=== PATIENT | female | born 1985 | race Two or more races ===

== ENCOUNTER 2024-02-20 17:08 | Inpatient (IN) | payer BC, SELFPAY ==
[2024-02-20] VITALS (32 sets, daily range): BP systolic 87–116; BP diastolic 52–79; PULSE 64–116; RESP 13–24; TEMP 36.5–36.7; O2SAT 92–100; BMI 41.9
--- NOTE | 2024-02-20 17:35 | PD.LDHP ---
Documentation for date of: 02/20/24 OB Labor/Induct. HPI History of Present Illness : 3 Para: 2 Term pregnancies: 2 History of present illness: 38-year-old G3, P2 who comes at 33 weeks and 1 day due to vaginal bleeding and contractions for an hour. Patient has history of 2 vaginal deliveries and placenta previa. Patient received steroids 1 month ago after being admitted in [place] for the same reason. Per patient, she has suspected placenta accreta. Reports not available, patient sees another provider in [place] Review of Systems Allergic/Immunologic Comments: Denies Past Medical History Surgical History OTHER SURGICAL HX: Gastric sleeve Past Medical History Comments PMH COMMENT: Denies Meds Home Medications and Allergies Home Medications ?Medication ?Instructions ?Recorded ?Confirmed ?Type vit no.95-ferrous 1 tab PO QDAY 09/07/22 12/16/23 History fumarate 28 mg-folic acid 800 mcg tablet () levothyroxine 50 mcg tablet 50 mcg PO QDAY 12/16/23 12/16/23 History ondansetron HCl 8 mg tablet 8 mg PO Q8HR PRN Nausea 12/16/23 12/16/23 History Allergies Allergy/AdvReac Type Severity Reaction Status Date / Time No Known Allergies Allergy Verified 12/16/23 19:40 OB Exam Physical Exam Vital signs: Pulse Ox 100 02/20/24 17:32 Routine Abdominal Exam Comments: Soft, nontender Detailed Labor and Delivery Exam Dilation (cm): 0 Presentation: Vertex Baseline heart rate: 150 monitor accelerations: 15x15 monitor decelerations: None terminal worker variability: Moderate (11-25) Contraction duration (sec): irreg OB Results Labs 02/20/24 17:45 02/20/24 17:45 Impressions Impression: 38-year-old G3, P2 at 33 weeks and 1 day with active bleeding Complete placenta previa, possible accreta OB Assessment & Plan Additional Plan Additional Plan Comment: Admit to labor and delivery. Routine admission labs. 3 units PRBC on hold. Patient consented for primary and possible hysterectomy
[2024-02-20 18:02] LABS: Basophils % (Auto) 0 % (0-2.5); Eosinophils % (Auto) 0 % (0-10); Hemoglobin 9.9 g/dL (12.0-16.0); Immature Granulocytes % (Auto) 1 % (0-0); Immature Granulocytes Auto 0.05 Thou/mm3 (0.00-0.00); Lymphocytes # (Auto) 1.6 Thou/mm3 (1.0-4.8); Lymphocytes % (Auto) 20 % (10-50); Mean Corpuscular Hemoglobin 26.4 pg (25.0-35.0); Mean Corpuscular Volume 80 fL (80-100); Monocytes # (Auto) 0.6 Thou/mm3 (0.0-0.8); Monocytes % (Auto) 7 % (0-12); Neutrophils # (Auto) 5.7 Thou/mm3 (1.8-7.7); Neutrophils % (Auto) 72 % (37-80); Nucleated Red Blood Cell % 0 /100 WBC (0); Platelet Count 151 Thou/mm3 (140-440); RDW Standard Deviation 40.7 fL (36.4-46.3); Red Blood Count 3.75 Miln/mm3 (4.00-5.20)
[2024-02-20 18:16] LABS: HIV (1&2) Antibody Rapid Non-Reactive
[2024-02-20] MEDS: ceFAZolin/D5W 2 GM IV 2 GM/100 ML BAG IV (18:21)
[2024-02-20] MEDS: CITRIC ACID/SODIUM CITR 15 ML UDC (BICITRA) 30 ML PO (18:21)
[2024-02-20] MEDS: FAMOTIDINE INJ 10 MG/ML VIAL 2 ML 20 MG IV (18:21)
[2024-02-20 18:28] LABS: Albumin/Globulin Ratio 1.4 (1.2-2.2); Alkaline Phosphatase 94 U/L (46-116); Anion Gap 11 (7-16); Aspartate Amino Transferase 11 U/L (0-34); BUN/Creatinine Ratio 13 Ratio (12-20); Bilirubin,Total 0.6 mg/dL (0.3-1.2); Blood Urea Nitrogen 8 mg/dL (9-23); Calcium 8.8 mg/dL (8.3-10.6); Calcium (Corrected) 8.8 mg/dL (8.5-10.1); Carbon Dioxide 20.5 mMol/L (20.0-31.0); Chloride 107 mMol/L (98-107); Creatinine (Component) 0.6 mg/dL (0.6-1.3); Estimated Creatinine Clearance 146.6 mL/min (>60); Globulin 2.9 gm/dL (2.3-3.5); Glucose 89 mg/dL (74-106); Osmolality,Calculated 272 (275-295); Potassium 3.6 mMol/L (3.4-5.1); Rubella, IgG Antibody Reactive (Immune); Sodium 138 mMol/L (136-145); Total Protein 6.9 gm/dL (5.7-8.2); eGFR > 60 See Note
[2024-02-20 18:31] LABS: Alanine Aminotransferase 8 U/L (10-49)
[2024-02-20 18:35] LABS: Hepatitis B Surface Antigen Non Reactive (Non React)
[2024-02-20 18:38] LABS: Syphilis Nonreactive (Nonreactive)
[2024-02-20 18:44] LABS: Fibrinogen 596 mg/dL (175-375); INR 0.9 (0.9-1.3); Partial Thromboplastin Time 25.6 Seconds (22.0-36.0)
--- NOTE | 2024-02-20 19:16 | ESOP_ITS ---
Operative Note - FENDER MECHANIC Procedure Date of procedure: 02/20/24 Procedure Performed: Primary low-transverse . Bilateral salpingectomy Indication: Placenta previa with active bleeding Desires permanent sterilization Pre-Op diagnosis: IUP at 33 weeks. Placenta. Active bleeding. Desires permanent sterilization Post-Op diagnosis: IUP at 33 weeks. Placenta. Active bleeding. Desires permanent sterilization Viable female Anesthesia type: Spinal Procedure description: The patient was taken to the OR, spinal anesthesia was used and was adequate.? 2 g of Ancef were given for infection prophylaxis.? She was prepped and draped in dorsal supine position.? ?A Pfannenstiel skin incision was made with a scalpel Incision was carried down through the fascia with the Bovie Fascia was grasped with Joaquim clamps superiorly and inferiorly and dissected with the Bovie. The rectus muscles were then dissected with the Bovie as well. Peritoneum was? entered bluntly. The uterine incision was performed and extended bluntly.? Baby was delivered from vertex presentation without any complications. ?Nose and mouth were suctioned on the operative field, cord was then clamped and cut.? The infant was handed off to the nurse.? Cord blood was obtained. IV oxytocin? was initiated to facilitate uterine contractions. The uterus was not exteriorized.? The inside of the uterus was then cleaned with a lap sponge to ensure complete removal of the placental membranes without complications. Then the hysterotomy was repaired along the uterine incision with 0 Vicryl in a locked fashion and? then in a running fashion with the same suture. 1g of TXA IV was given. Attention was then turned to the fallopian tubes which were grasped with Danny clamps bilaterally dissected and cut with excellent hemostasis with an Enseal device The uterus was inspected in the abdomen and noted to be firm,? the uterine incision was reinspected with excellent hemostasis noted after 0.2mg of methergine IM. Fascia layer was closed with an 0 Vicryl in a running fashion Subcutaneous layer was closed with plain gut Skin was close with 4-0 Monocryl Specimen: left tube and right tube Estimated blood loss (ml): 800 Findings: Normal uterus, tubes, ovaries, no accreta Complications: none Surgical staff Operation Date: 02/20/24 19:00 <No data on this case meets the specified criteria> Diagnosis Problem List Completed Was Problem List Reviewed/Reconciled?: Yes
--- NOTE | 2024-02-20 19:37 | PD.LDDELS ---
Data ([facility]) Data Para: 2 Delivery Data ([facility]) Labor Data ROM Date: 02/20/24 ROM Time: 18:51 Rupture Type: AROM Delivery Data Labor Onset Stage 1 Date: 02/20/24 Labor Onset Stage 1 Time: 18:51 Labor Onset Stage 2 Date: 02/20/24 Labor Onset Stage 2 Time: 18:51 Delivery Date: 02/20/24 Delivery Time: 18:51 Placenta Delivery Date: 02/20/24 Placenta Delivery Time: 18:52 Delivered by: Luis Alberto Marin Delivery nurse: Stephy Valdez Other staff at delivery: 2nd Nurse Other staff at delivery: 2nd Nurse Other staff at delivery: 2nd Nurse Other staff at delivery: Nursery Nurse Other staff at delivery: Dorothea Roberts Other staff at delivery: Evelin Trejo Other staff at delivery: Lovely Jasmine Other staff at delivery: LUCIANA Sinclairbusiness department chair Method Delivery: Delivery Type: Primary Presentation: Vertex Anesthesia Type Primary Anesthesia: Spinal Delivery Room Medications Other Intrapartum Medications: Yes Placenta Placenta Delivery: Manual Placenta Sent for Examination: Yes Cord Sample: Cord Blood Obtained, Cord Gases Arterial and Cord Gases Venous EBL Estimated blood loss (ml): 800 Umbilical Cord Placenta/Cord Complication: Placenta Previa Umbilical Vessels: 3 Nuchal Cord: None Body Cord: None [place] Data ([facility]) Data Infant Gender: Male Infant Weight Grams: 2480 1 Minute Total: 7 5 Minute Total: 9
[2024-02-20] MEDS: DIPHENOXYLATE/ATROP SULF 1 TAB PO (20:05)
[2024-02-20] MEDS: TRANEXAMIC ACID 1,000 MG IVPB 1,000 MG/100 ML BAG 200 MG IV (20:07)
[2024-02-20] MEDS: METHYLERGONOVINE 0.2 MG TABLET PO (21:11)
[2024-02-20] MEDS: OXYTOCIN in NS 20 units 20 UNIT/1,000 ML BAG 125 UNIT IV (22:34)
[2024-02-20] MEDS: ONDANSETRON INJ 2 MG/ML INJ 2 ML 4 MG IV (23:27)
[2024-02-21] VITALS: BP 98/64; PULSE 63; RESP 18; TEMP 36.8; O2SAT 98
[2024-02-21 02:27] LABS: Amphetamine/Metham Scrn,Ur OB Negative (Negative); Benzoylecgonine Screen, Ur OB Negative (Negative); Opiate Screen,Urine OB Negative (Negative); THC Screen,Urine OB Negative (Negative)
[2024-02-21 04:00] VITALS: BP 93/59; PULSE 54; RESP 18; TEMP 36.4; O2SAT 100
[2024-02-21 05:48] LABS: Basophils % (Auto) 0 % (0-2.5); Eosinophils % (Auto) 0 % (0-10); Hematocrit 25.3 % (36.0-46.0); Immature Granulocytes % (Auto) 1 % (0-0); Immature Granulocytes Auto 0.09 Thou/mm3 (0.00-0.00); Lymphocytes # (Auto) 0.8 Thou/mm3 (1.0-4.8); Lymphocytes % (Auto) 6 % (10-50); Mean Corpuscular HGB Conc 33.6 g/dl (31.0-37.0); Mean Corpuscular Hemoglobin 26.8 pg (25.0-35.0); Mean Corpuscular Volume 80 fL (80-100); Monocytes # (Auto) 0.6 Thou/mm3 (0.0-0.8); Monocytes % (Auto) 5 % (0-12); Neutrophils # (Auto) 11.3 Thou/mm3 (1.8-7.7); Neutrophils % (Auto) 89 % (37-80); Nucleated Red Blood Cell % 0 /100 WBC (0); Platelet Count 127 Thou/mm3 (140-440); RDW Standard Deviation 40.3 fL (36.4-46.3); Red Blood Count 3.17 Miln/mm3 (4.00-5.20); White Blood Count 12.8 Thou/mm3 (3.6-11.0)
[2024-02-21 05:52] LABS: Hemoglobin 8.5 g/dL (12.0-16.0)
[2024-02-21] MEDS: OXYTOCIN in NS 20 units 20 UNIT/1,000 ML BAG 125 UNIT IV (06:36)
--- NOTE | 2024-02-21 07:10 | PC.NURSE ---
Dr. Marin made aware of h/h no new orders
[2024-02-21 07:27] VITALS: BP 93/57; PULSE 63; RESP 18; TEMP 36.8; O2SAT 100
[2024-02-21] MEDS: KETOROLAC INJ 30 MG/ML VIAL IVP ×2 (07:30→21:10)
--- NOTE | 2024-02-21 08:38 | ESPR_ITS ---
Subjective Subjective Interval history: Bedside. Afebrile, tolerating p.o., ambulating, voiding, positive flatus Exam Vital Signs Temp Pulse Resp BP Pulse Ox O2 Del Method 97.5 F 54 L 18 93/59 L 100 Room Air 02/21/24 04:00 02/21/24 04:00 02/21/24 04:00 02/21/24 04:00 02/21/24 04:00 02/21/24 04:00 Routine Abdominal Exam Comments: Soft, appropriate tender. Incision clean, dry, intact. Uterus firm, below the umbilicus Routine Exam Comments: Lochia similar to menses Routine Extremities Exam Comments: Homans' sign negative Objective Labs 02/21/24 04:47 02/20/24 17:45 Labs: Laboratory Results - last 24 hr 02/20/24 02/21/24 02/21/24 17:45 02:00 04:47 WBC 8.0 12.8 H D RBC 3.75 L 3.17 L Hgb 9.9 L 8.5 L Hct 30.0 L 25.3 L MCV 80 80 MCH 26.4 26.8 MCHC 33.0 33.6 RDW Std Deviation 40.7 40.3 Plt Count 151 127 L Neut % (Auto) 72 89 H Lymph % (Auto) 20 6 L [place] % (Auto) 7 5 Eos % (Auto) 0 0 Baso % (Auto) 0 0 Neut # (Auto) 5.7 11.3 H Lymph # (Auto) 1.6 0.8 L [place] # (Auto) 0.6 0.6 Eos # (Auto) 0.0 0.0 Baso # (Auto) 0.0 0.0 Immature Gran # (Auto) 0.05 H 0.09 H Absolute Nucleated RBC 0.00 0.00 Immature Gran % 1 H 1 H Nucleated RBC % 0 0 PT 10.0 INR 0.9 APTT 25.6 Fibrinogen 596 H Sodium 138 Potassium 3.6 Chloride 107 Carbon Dioxide 20.5 Anion Gap 11 BUN 8 L Creatinine 0.6 Estim Creat Clear Calc 146.6 eGFR > 60 BUN/Creatinine Ratio 13 Glucose 89 Calculated Osmolality 272 L Uric Acid 5.0 Calcium 8.8 Corrected Calcium 8.8 Total Bilirubin 0.6 AST 11 ALT 8 L Alkaline Phosphatase 94 Total Protein 6.9 Albumin 4.0 Globulin 2.9 Albumin/Globulin Ratio 1.4 Urine Opiates Screen Negative U Amphetamin/Meth Scrn Negative U Cocaine Metab Screen Negative U Marijuana (THC) Screen Negative Syphilis Serology Nonreactive Hep Bs Antigen Non Reactive HIV 1&2 Antibody Rapid Non-Reactive Rubella IgG Antibody Reactive (Immune) Blood Type B Negative Antibody Screen NEGATIVE Crossmatch See Detail Blood Bank Wristband ID Yes Assessment & Plan Assessment Comment Assessment comment: 38-year-old status post primary due to placenta previa with bleeding Post op day 1 Status post 1 unit PRBC Plan Comment Plan Comment: Routine care. Encourage ambulation. IV iron infusions. Lovenox for DVT prophylaxis Time Spent With Patient Time: Total time spent is greater than 50% in coordination of care (as documented) at patient's floor/unit and/or counseling patient:
[2024-02-21 09:26] LABS: Chlamydia trachomatis PCR Negative (Not Detect); Neisseria Gonorrhoeae DNA PCR Negative (Not Detect); Trichomonas Negative (Negative)
[2024-02-21] MEDS: ENOXAPARIN SOD INJ 40 MG/0.4 ML SYRINGE SC (09:43)
[2024-02-21] MEDS: IRON SUCROSE CPLX INJ 20 MG/ML VIAL 5 ML 200 MG IVP (09:45)
--- NOTE | 2024-02-21 09:47 | PC.NURSE ---
Ok to give Lovenox with a platelet count of [address] Marin
[2024-02-21] MEDS: SIMETHICONE 80 MG CHEW PO (11:57)
[2024-02-21 12:00] VITALS: BP 92/53; PULSE 62; RESP 17; TEMP 36.8; O2SAT 100
--- NOTE | 2024-02-21 13:07 | PC.SS ---
PRODUCTION OFFICER conducted bedside contact with the patient to address nursing referral indicating patient possessed history of anxiety. PRODUCTION OFFICER conducted bedside contact with the patient. PRODUCTION OFFICER introduced self, role and basis of discussion. Patient confirmed past possession of anxiety due to passing of family member. Patient reports event occurred approximately 3 years ago. Patient denies current possession of anxiety. Patient reports no possession of mental health services. Patient confirmed that is admitted to NICU, due denies possession of elevated anxiety at current time. Carolina delivered by . is the patient?s 3rd child. Other children are ages 7 and 1 years old. Patient resides with children and FONed Zamora. 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 Patient is not aligned with WIC, [employer] or TANF. Patient denies history of alcohol/drug abuse. Patient denies CWS intervention. Patient denies episodes of domestic violence. Patient plans on combo feeding the . OB services provided by [facility]. Patient reports consistency with OB appointments. Patient has access to appropriate supplies and equipment; to include a car seat. FOB will provide transportation upon discharge. Patient describes possessing support system consisting of FOB and extended family. PRODUCTION OFFICER provided the patient with community resources. No further intervention required at this time, case management social worker will be available to address any further concerns. PRODUCTION OFFICER updated bedside nurse.
[2024-02-21 15:20] VITALS: BP 93/55; PULSE 72; RESP 18; TEMP 36.7; O2SAT 100
[2024-02-21 21:00] VITALS: BP 90/57; PULSE 80; RESP 16; TEMP 36.7; O2SAT 100
[2024-02-22 05:29] VITALS: BP 84/50; PULSE 86; RESP 16; TEMP 36.9; O2SAT 98
[2024-02-22 08:50] VITALS: BP 100/63; PULSE 93; RESP 18; TEMP 37; O2SAT 99
[2024-02-22] MEDS: Milk Of Magnesia Susp 30 ML UDC PO ×2 (09:14→19:33)
[2024-02-22 09:15] VITALS: TEMP 37
[2024-02-22] MEDS: ENOXAPARIN SOD INJ 40 MG/0.4 ML SYRINGE SC (09:15)
[2024-02-22] MEDS: HYDROcodone/APAP 5/325 TABLET 1 TAB PO ×2 (09:15→19:25)
[2024-02-22] MEDS: SIMETHICONE 80 MG CHEW PO ×2 (09:15→19:33)
[2024-02-22] MEDS: IBUPROFEN TAB 400 MG TABLET 800 MG PO (09:15)
[2024-02-22] MEDS: IRON SUCROSE CPLX INJ 20 MG/ML VIAL 5 ML 200 MG IVP (11:00)
--- NOTE | 2024-02-22 12:41 | PD.LDPPPRG ---
Subjective Subjective Interval history: Delivery type: Patient doing well this morning. No acute complaints. Ambulating, tolerating p.o. and voiding without difficulty. HTN/Pre-Eclampsia screen: No chest pain, shortness of breath, headache, visual changes, epigastric or right upper quadrant pain. Breast-feeding, lochia diminishing. Bowel: Flatus+/ BM+ Exam Vital Signs Temp Pulse Resp BP Pulse Ox O2 Del Method 98.6 F 93 18 100/63 99 Room Air 02/22/24 09:15 02/22/24 08:50 02/22/24 08:50 02/22/24 08:50 02/22/24 08:50 02/22/24 08:50 Constitutional Constitutional: no acute distress Routine HEENT Exam Head: Present normocephalic and atraumatic Eye: Present EOMI and PERRL ENT: Present mucous membranes moist Routine Neck Exam Neck: Present supple and trachea midline Routine Respiratory Exam Respiratory: Present chest non-tender, lungs clear, normal breath sounds and no resp distress Routine Cardiovascular Exam Cardiovascular: Present RRR Routine Abdominal Exam Abdominal: Present soft and normoactive bowel sounds Routine Extremities Exam Extremities: Present full ROM Routine Skin Exam Skin: Present intact, dry and warm Routine Neurological Exam Neurological: Present alert, oriented X3 and CN II-XII intact Routine Psychiatric Exam Psychiatric: Present normal affect and normal thought process Objective Labs 02/21/24 04:47 02/20/24 17:45 Assessment & Plan Problem List (1) delivery delivered: Status: Acute Assessment and plan: PPD/POD#2 1. Continue routine care 2. Transition to PO meds. 3. Encourage to ambulate/ breast-feed 4. Anticipate discharge home tomorrow. Time Spent With Patient Time: Total time spent is greater than 50% in coordination of care (as documented) at patient's floor/unit and/or counseling patient:
[2024-02-22 14:20] VITALS: BP 90/60; PULSE 77; RESP 20; TEMP 36.8; O2SAT 99
[2024-02-22 16:30] VITALS: BP 101/64; PULSE 80; RESP 20; TEMP 36.8; O2SAT 99
[2024-02-22 19:28] VITALS: BP 103/65; PULSE 64; PULSE 87; RESP 18; TEMP 36.8; O2SAT 99
[2024-02-23 04:00] VITALS: BP 93/62; PULSE 85; RESP 16; TEMP 36.7; O2SAT 100
[2024-02-23] MEDS: HYDROcodone/APAP 5/325 TABLET 1 TAB PO (04:39)
[2024-02-23 07:36] VITALS: BP 94/59; PULSE 88; RESP 16; TEMP 36.4; O2SAT 98
--- NOTE | 2024-02-23 08:31 | PD.LDPPPRG ---
Subjective Subjective Interval history: Delivery type: Patient doing well this morning. No acute complaints. Ambulating, tolerating p.o. and voiding without difficulty. HTN/Pre-Eclampsia screen: No chest pain, shortness of breath, headache, visual changes, epigastric or right upper quadrant pain. Breast-feeding, lochia diminishing. Bowel: Flatus+/ BM+ Exam Vital Signs Temp Pulse Resp BP Pulse Ox O2 Del Method 97.6 F 88 16 94/59 L 98 Room Air 02/23/24 07:36 02/23/24 07:36 02/23/24 07:36 02/23/24 07:36 02/23/24 07:36 02/23/24 07:36 Constitutional Constitutional: no acute distress Routine HEENT Exam Head: Present normocephalic and atraumatic Eye: Present EOMI and PERRL ENT: Present mucous membranes moist Routine Neck Exam Neck: Present supple and trachea midline Routine Respiratory Exam Respiratory: Present chest non-tender, lungs clear, normal breath sounds and no resp distress Routine Cardiovascular Exam Cardiovascular: Present RRR Routine Abdominal Exam Abdominal: Present soft and normoactive bowel sounds Routine Extremities Exam Extremities: Present full ROM Routine Skin Exam Skin: Present intact, dry and warm Routine Neurological Exam Neurological: Present alert, oriented X3 and CN II-XII intact Routine Psychiatric Exam Psychiatric: Present normal affect and normal thought process Objective Labs 02/21/24 04:47 02/20/24 17:45 Assessment & Plan Problem List (1) delivery delivered: Status: Acute Assessment and plan: PPD/POD#3 1. Continue routine care 2. Transition to PO meds. 3. Encourage to ambulate/ breast-feed 4. Anticipate discharge home today. Time Spent With Patient Time: Total time spent is greater than 50% in coordination of care (as documented) at patient's floor/unit and/or counseling patient:
--- NOTE | 2024-02-23 08:32 | PD.LDDS ---
DS: Providers Provider Date of admission: 02/20/24 17:25 Primary care physician: Luis Alberto Marin MD Admitting Provider: Luis Alberto Marin MD Attending Provider on Admission: Donald Dc MD Consults: 02/20/24 19:26 Referral Routine Comment: Attending Provider on DC: Donald Dc MD Discharging Provider: Donald Dc MD DS: Diagnosis Discharge Diagnosis (1) delivery delivered: Status: Acute (2) Antepartum hemorrhage: Status: Acute Problem List Completed Was Problem List Reviewed/Reconciled?: Yes Summary/Hosp Course Brief History: 38-year-old G3, P2 who comes at 33 weeks and 1 day due to vaginal bleeding and contractions for an hour. Patient has history of 2 vaginal deliveries and placenta previa. Patient received steroids 1 month ago after being admitted in [place] for the same reason. Per patient, she has suspected placenta accreta. Reports not available, patient sees another provider in [place] Peripartum Data Procedures: Procedures Operation Date: 02/20/24 19:00 Actual Procedure Side Surgeon p w/tubal OB Not Applicable Luis Alberto Marin MD Time Spent with Patient Time attestation: Total time spent providing and/or coordinating discharge services: Exam Vital Signs Temp Pulse Resp BP Pulse Ox O2 Del Method 97.6 F 88 16 94/59 L 98 Room Air 02/23/24 07:36 02/23/24 07:36 02/23/24 07:36 02/23/24 07:36 02/23/24 07:36 02/23/24 07:36 Discharge Plan Plan Patient Disposition: HOME (Self Care) Patient condition on transfer: Stable Prescriptions/Referrals Prescriptions/Med Rec: New hydrocodone-acetaminophen 5-325 mg Tablet 1 tab PO Q6H MDD 4 PRN (Reason: Patient rated pain 7 to 8) 5 Days Qty: 20 0RF ibuprofen 400 mg Tablet 800 mg PO Q8HR PRN (Reason: Pain Scale 4-6 (Moderate) 10 Days Qty: 40 0RF Continued PNV cmb#95-ferrous fumarate-FA [] 28 mg iron- 800 mcg tablet 1 tab PO QDAY Patient Comments: TAKE 1 TABLET BY MOUTH EVERY DAY levothyroxine 50 mcg tablet 75 mcg PO QDAY Patient Comments: TAKE 1 TABLET (50 MCG) BY ORAL ROUTE ONCE DAILY ON AN EMPTY STOMACH 30 MINUTES BEFORE BREAKFAST nitrofurantoin monohyd/m-cryst [Macrobid] 100 mg Capsule 100 mg PO QDAY Rx Instructions: must administer with a meal/food Referrals: Luis Alberto Marin MD [Primary Care Provider] - Patient/Caregiver Discharge Instructions Meds to Beds: Yes Discharge Activity: activity as tolerated Education Materials: After Delivery Concerns, After a , C Section Dc Print Language: Arabic Stand Alone Forms: Shu Award Info., Patient Portal Info Letter, DC from Surgery Discharge Order Discharge Orders: Discharge (Routine); Ordered 02/23/24 Ordered By: Donald Dc Planned Discharge Date 02/23/24
[2024-02-23] MEDS: ENOXAPARIN SOD INJ 40 MG/0.4 ML SYRINGE SC (09:11)
[2024-02-23] MEDS: IBUPROFEN TAB 400 MG TABLET 800 MG PO (09:25)
== END 2024-02-23 14:06 | disposition home or self-care (01) | DRG 785 ==
LOC: S4SX 18:10 → S4NX 19:07 → S4SX 02-21 08:51
PROVIDERS: Admitting Provider Obstetrics & Gynecology; PCP Obstetrics & Gynecology; Visit Provider Obstetrics & Gynecology
PROC: 0UL70ZZ Occlusion of Bilateral Fallopian Tubes, Open Approach (ICD-10-PCS; CPT 59514; principal; 2024-02-20 18:45)
DX: O44.13 Complete placenta previa with hemorrhage, third trimester (principal); Z3A.33 33 weeks gestation of pregnancy; Z30.2 Encounter for sterilization; O99.844 Bariatric surgery status complicating childbirth; Z37.0 Single live birth
CPT/HCPCS: 36415; 59409; 80053; 80307; 84550; 85025; 85384; 85610; 85730; 86703; 86762; 86780; 86850; 86900; 86901; 86921; 86922; 87340; 87491; 87591; 87661; 94762; A4649; J0689; J1100; J1650; J1756; J1885; J2274; J2371; J2405; J2550; J2590; J3010; J3490; P9016; A9270; J0690; J2270

== ENCOUNTER → 2025-01-04 | Outpatient (CLI) | payer BC, SELFPAY ==
[2025-01-04 08:25] LABS: Basophils # (Auto) 0.0 Thou/mm3 (0.0-0.2); Basophils % (Auto) 0 % (0-2.5); Eosinophils # (Auto) 0.1 Thou/mm3 (0.0-0.5); Eosinophils % (Auto) 2 % (0-10); Hematocrit 35.3 % (36.0-46.0); Hemoglobin 11.5 g/dL (12.0-16.0); Immature Granulocytes Auto 0.02 Thou/mm3 (0.00-0.00); Lymphocytes # (Auto) 1.4 Thou/mm3 (1.0-4.8); Lymphocytes % (Auto) 27 % (10-50); Mean Corpuscular HGB Conc 32.6 g/dl (31.0-37.0); Mean Corpuscular Hemoglobin 24.7 pg (25.0-35.0); Mean Corpuscular Volume 76 fL (80-100); Monocytes # (Auto) 0.5 Thou/mm3 (0.0-0.8); Monocytes % (Auto) 10 % (0-12); Neutrophils # (Auto) 3.2 Thou/mm3 (1.8-7.7); Neutrophils % (Auto) 61 % (37-80); Nucleated Red Blood Cell # 0.00 Thou/mm3 (0.00-0.00); Nucleated Red Blood Cell % 0 /100 WBC (0); Platelet Count 179 Thou/mm3 (140-440); RDW Standard Deviation 41.3 fL (36.4-46.3); Red Blood Count 4.66 Miln/mm3 (4.00-5.20); White Blood Count 5.2 Thou/mm3 (3.6-11.0)
[2025-01-04 08:34] LABS: Glucose Estimated Average 114 mg/dL (80-131); Hemoglobin A1C 5.6 % Hgb (4.8-6.0)
[2025-01-04 08:45] LABS: Vitamin B12 490 pg/mL (211-911); Vitamin D 25 Hydroxy Total 15.9 ng/mL (7.3-40.2)
[2025-01-04 08:52] LABS: Albumin, Serum 4.1 gm/dL (3.5-5.0); Anion Gap 10 (7-16); BUN/Creatinine Ratio 11 Ratio (12-20); Blood Urea Nitrogen 8 mg/dL (9-23); Calcium 9.0 mg/dL (8.3-10.6); Calcium (Corrected) 9.0 mg/dL (8.5-10.1); Carbon Dioxide 27.2 mMol/L (20.0-31.0); Cardiac Risk Estimate 2.1 RATIO (3.7-5.6); Chloride 108 mMol/L (98-107); Cholesterol 146 mg/dL (132-200); Creatinine (Component) 0.7 mg/dL (0.6-1.3); Free T4 (Free Thyroxine) 1.31 ng/dL (0.89-1.76); Glucose 106 mg/dL (74-106); HDL Cholesterol 69 mg/dL (40-60); LDL Cholesterol,Calculated 68 mg/dL (0-130); Osmolality,Calculated 287 (275-295); Phosphorous 4.2 mg/dL (2.4-5.1); Potassium 4.2 mMol/L (3.4-5.1); Sodium 145 mMol/L (136-145); Thyroid Stimulating Hormone < 0.01 uIU/mL (0.55-4.78); Triglycerides 45 mg/dL (30-150); Uric Acid 5.2 mg/dL (3.1-7.8); eGFR > 60 See Note
[2025-01-14 06:49] LABS: Cortisol,total,LC/MS/MS* 16.3 mcg/dL
== END | disposition home or self-care (01) ==
LOC: COPL 06:45
PROVIDERS: PCP Internal Medicine; Referring Provider Internal Medicine; Visit Provider Internal Medicine
DX: E03.9 Hypothyroidism, unspecified (principal); R73.01 Impaired fasting glucose; E66.01 Morbid (severe) obesity due to excess calories
CPT/HCPCS: 36415; 80061; 80069; 82306; 82533; 82607; 83036; 84439; 84443; 84550; 85025